=== PATIENT | female | born 1960 | race Caucasian/White ===

== ENCOUNTER 2018-10-03 06:22 | Day surgery (SDC) | payer BC ==
[~2018-10-03] VITALS: Ht 167.7 cm; Wt 66.9 kg
[2018-10-03] VITALS (9 sets, daily range): BP systolic 112–133; BP diastolic 67–76; PULSE 67–85; TEMP 97.8
[2018-10-03] MEDS ORDERED: PROFERRIN ES12 MG PO (07:02)
[2018-10-03] MEDS ORDERED: TOPROL XL 25MG25 MG PO (07:03)
[2018-10-03] MEDS ORDERED: ASPIRIN E.C. 8181 MG PO (07:04)
[2018-10-03] MEDS ORDERED: PREDNISONE20 MG PO (07:08)
[2018-10-03 07:14] LABS: HEMATOCRIT 39.8 % (37.0-47.0); HEMOGLOBIN 13.4 g/dl (12.5-16.0); MEAN CELL VOLUME 92 fl (80.0-100.0); MEAN CORPUSCULAR HEMOGLOBIN 31 pg (27.0-31.0); MEAN CORPUSCULAR HGB CONC 34 g/dl (33.0-37.0); MEAN PLATELET VOLUME 10.1 fl (7.4-10.4); PLATELET COUNT 301 K/mm3 (130-400); RED BLOOD COUNT 4.32 M/mm3 (4.10-5.30); REDCELL DISTRIBUTION WIDTH-CV 12.3 % (11.5-14.5)
[2018-10-03 07:27] LABS: CALCIUM 9.9 mg/dL (8.4-10.2); CREATININE, serum 0.66 (0.52-1.25); POTASSIUM 4.1 mmol/L (3.4-5.0)
--- NOTE | 2018-10-03 08:18 | NUR ---
SEE MERGE REPORT FOR MEDICATION ADMINISTRATION TIMES WELL INTRA/POST PROCEDURAL SEDATION ASSESSMENTS. PT WITH POSITIVE BARBEAU EXAM TO RIGHT RADIAL ARTERY. PLAN FOR RIGHT RADIAL ACCESS.
--- NOTE | 2018-10-03 09:30 | NUR ---
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 pt has 2 Tbands on right right wrist with 10ml to distal site and 12 ml of air to 2nd site nearst elbow, pt takes water and coffee
--- NOTE | 2018-10-03 10:30 | NUR ---
ORDERS LUNCH, SITES REMAIN THE SAME, NO C/O
--- NOTE | 2018-10-03 11:00 | NUR ---
Dr Lipscomb into see pt and to discusss results and answer questions, no followup appt at this time.
--- NOTE | 2018-10-03 11:15 | NUR ---
released both bands on right arm, slowly, 5cc air, wait 5 min. then 5cc of air, areas are soft, but bruised and original bandaid to distal site is clean and dry. bandaid applied x1 then coban, pt up to b/r to void, gait steady. IV d'cd intact, reviewed discharge inst. with pt and of activity, precautions and activity, with verbal understanding.
--- NOTE | 2018-10-03 11:45 | NUR ---
pt up in room dressed, discharged via ambulatory to truck with
== END 2018-10-03 12:00 | disposition home or self-care (01) ==
LOC: COL.CAR 06:22
PROVIDERS: Internal Medicine Interventional Cardiology
DX: R07.89 Other chest pain (principal); R94.39 Abnormal result of other cardiovascular function study; I49.1 Atrial premature depolarization; Q22.5 Ebstein's anomaly; R00.2 Palpitations
CPT/HCPCS: J1200; J1644; J2250; J2930; J3010; Q9967